=== PATIENT | female | born 1995 ===

== ENCOUNTER 2021-04-23 13:48 | Outpatient (REF) | payer MEDICAID, SELFPAY ==
--- NOTE | 2021-04-23 13:30 | PAPFT_PTH ---
PATIENT: YUNG MAHONEY LOC: [facility]#:[id number] AGE/SX: 25/F ROOM: RE04/23/[address]: Frannie Frey : 1995 BED: DIS: 04/23/2021 SPEC #: [id number] RECD: 04/26/21 12:34 STATUS: AUGUSTO REQ #: [id number] KEATON: 04/23/21 13:[address]: Frannie Frey DEPT: [facility] Cytology RECD BY: Tyra Moreira ENTERED: 04/26/21 12:35 SP TYPE: PAPFT OTHR DR: Laya Hammer Tissues: 1 - CX/ENDOCX FOR PAP SMEARS Procedures: PAP THIN PREP/[facility] Screening Comments: [id number]
== END 2021-04-23 13:49 | disposition home or self-care (01) ==
LOC: NCHCN 13:48
PROVIDERS: PCP Nurse Practitioner Family; Visit Provider Registered Nurse
DX: Z12.4 Encounter for screening for malignant neoplasm of cervix (principal)
CPT/HCPCS: 88142